=== PATIENT | female | born 1990 ===

== ENCOUNTER 2022-10-28 03:33 | Emergency (ER) | payer OTHER ==
[~2022-10-28] VITALS: Ht 147.3 cm; Wt 52.2 kg
== END 2022-10-28 04:26 | disposition home or self-care (01) ==
LOC: ER 03:33
DX: J06.9 Acute upper respiratory infection, unspecified (principal)

== ENCOUNTER 2023-07-03 11:56 | Emergency (ER) | payer OTHER ==
[~2023-07-03] VITALS: Ht 147.3 cm; Wt 49.9 kg
== END 2023-07-03 14:42 | disposition home or self-care (01) ==
LOC: ER 11:56
DX: H60.8X1 Other otitis externa, right ear (principal)